=== PATIENT | female | born 2000 | race Caucasian/White ===

== ENCOUNTER 2024-08-27 16:53 | Emergency (ER) | payer SELFPAY ==
[~2024-08-27] VITALS: Ht 167.6 cm; Wt 68.0 kg
[2024-08-27 17:02] VITALS: O2SAT 100
[2024-08-27 21:56] LABS: CHLORIDE 110 mEq/L (98-107); SODIUM 142 mEq/L (136-145)
[2024-08-27 21:57] LABS: CARBON DIOXIDE 25 mEq/L (21-32)
[2024-08-27 21:58] LABS: CALCIUM 9.7 mg/dL (8.7-10.4)
[2024-08-27 21:59] LABS: BASOPHILS % 0.2 % (0.0-2.0); EOSINOPHILS % 1.7 % (0.0-5.0); HEMATOCRIT. 35.6 % (36.0-48.0); HEMOGLOBIN. 10.7 g/dL (12.0-16.0); LYMPHOCYTES % 22.5 % (20.0-50.0); MEAN CORPUSCULAR HEMOGLOBIN 20.6 pg (28.0-32.0); MEAN CORPUSCULAR VOLUME 68.6 fL (81.0-99.0); MEAN PLATELET VOLUME 8.2 fl (7.4-10.4); MONOCYTES % 6.5 % (2.0-8.0); NEUTROPHILS % 69.1 % (40.0-76.0); PLATELET 367 x1000/uL (130-400); RED BLOOD CELL COUNT 5.18 mill/uL (4.2-5.4); RED CELL DISTRIBUTION WIDTH 18.7 % (11.6-14.6); WHITE BLOOD COUNT 8.3 x1000/uL (4.5-11.0)
[2024-08-27 22:02] LABS: CREATININE 0.7 mg/dL (0.6-1.0); GLUCOSE 84 mg/dL (70-105); UREA NITROGEN BLOOD 8 mg/dL (9-23)
[2024-08-27 22:11] LABS: ADD RBC MORPHOLOGY YES; DIFFERENTIAL COMMENT 1
[2024-08-27 22:23] LABS: HCG SCREEN NEGATIVE
[2024-08-27] MEDS: HYDROCODONE/ACETAMINOPHEN 5/325MG TABLET PO STA (22:39)
[2024-08-27 22:40] LABS: ANISOCYTOSIS 1+; HYPOCHROMASIA 2+; MICROCYTOSIS 3+; PLATELET ESTIMATE NORMAL
[2024-08-27] MEDS ORDERED: CLIN-194 MT (23:35)
[2024-08-27] MEDS ORDERED: SULF1TAB48 MT (23:35)
[2024-08-27 23:45] VITALS: BP 115/83; PULSE 90; RESP 17; TEMP 36.50292; O2SAT 100
[2024-08-27] MEDS: LIDOCAINE HCL/PF 1% 10 MG/ML 5ML VIAL INFIL ONE (23:48)
== END 2024-08-28 | disposition home or self-care (01) ==
LOC: ER 16:53
DX: N75.1 Abscess of Bartholin's gland (principal); Z88.0 Allergy status to penicillin
CPT/HCPCS: 99284; 80048; 84703; 85025; 36415; J3490